=== PATIENT | female | born 1935 | race Caucasian/White ===

== ENCOUNTER 2017-08-10 00:56 | Inpatient (IN) | payer OTHER ==
[~2017-08-10] VITALS: Ht 152.4 cm; Wt 60.8 kg
[~2017-08-10 00:56] MED LIST: AMLODIPINE BESYL5 M1 PO; ASPIRIN EC81 M1 PO; CALCIUM 600-VI1 EAC1 PO; LOSARTAN-HCTZ1 EAC2 PO; PRAVACHOL40 M1 PO; TYLENOL EXTRA500 M2 PO; VITAMIN B-121000 MC3 PO; VITAMIN C1000 M4 PO; VITAMIN D31000 UNI1 PO
--- NOTE | 2017-08-10 13:21 | RADIOLOGY REPORT ---
EXAMINATION: XR HIP, RIGHT CLINICAL INFORMATION: Status post right total hip replacement COMPARISON: None TECHNIQUE: Two views of the right hip. FINDINGS: The components of the total hip arthroplasty are in their expected positions. The femoral head prosthesis is well-positioned within the acetabular cup which has an estimated lateral version of approximately 43 degrees and anteversion of approximately 20 degrees. No acute periprosthetic fracture. Postoperative soft tissue gas around the hip. IMPRESSION: The components of the right total hip arthroplasty exhibit satisfactory position and alignment.
[2017-08-10 13:30] VITALS: BP 126/78
--- NOTE | 2017-08-10 13:50 | Admission Core Measures ---
Acute Coronary Syndrome (CM) ACS Core Measures Acute Coronary Syndrome Diagnosis No Congestive Heart Failure (NEW) CHF Core Measures Congestive Heart Failure Diagnosis No Cerebrovascular Accident (NEW) CVA Core Measures CVA/TIA Diagnosis No Venous Thromboembolism VTE Core Nicole (View Protocol) VTE Risk Factors Surgery No Mechanical VTE Prophylaxis d/t N/A MechProphylax Ordered No VTE Pharm Prophylaxis d/t NA PharmProphylax ordered Problem List As ranked by this Provider includes Assessment & Plan 1. Unilateral primary osteoarthritis, right hip HOME MEDS Home Med List Acetaminophen (Tylenol Extra Strength) 500 MG TABLET 2 TAB PO PRN PAIN ( Reported) Amlodipine Besylate 5 MG TABLET 1 TAB PO DAILY BP (Reported) Ascorbic Acid (Vitamin C) (Unknown Strength) TABLET (Unknown Dose) PO DAILY SUPPLEMENT (Reported) Aspirin (Ecotrin*) 81 MG TABLET.DR 1 TAB PO DAILY HEART/BLOOD (Reported) Calcium Carbonate/Vitamin D3 (Calcium 600-Vit D3 2,500 Sftgl) (Unknown Strength) CAPSULE (Unknown Dose) PO DAILY SUPPLEMENT (Reported) Cholecalciferol (Vitamin D3) (Vitamin D3) 1,000 UNIT CAPSULE 1 CAP PO DAILY SUPPLEMENT (Reported) Cyanocobalamin (Vitamin B-12) 1,000 MCG TABLET 1 TAB PO DAILY SUPPLEMENT ( Reported) Losartan/Hydrochlorothiazide (Losartan-Hctz 100-25 MG Tab) 100 MG-25 MG TABLET 1 TAB PO DAILY BP (Reported) Pravastatin Sodium (Pravachol) 40 MG TABLET 1 TAB PO DAILY CHOLESTEROL ( Reported)
[2017-08-10] MEDS ORDERED: ASPIRIN EC81 M1 PO (13:52)
[2017-08-10] MEDS ORDERED: PERCOCET 5-3251 EACH PO (13:52)
[2017-08-10] MEDS ORDERED: COLACE100 M1 PO (13:52)
[2017-08-10] MEDS ORDERED: MIRALAX17 G1 PO (13:52)
[2017-08-10] MEDS ORDERED: PRILOSEC OTC20 M1 PO (13:52)
--- NOTE | 2017-08-10 13:56 | Patient Discharge Instructions ---
Discharge Instructions General Discharge Information You were seen/treated for: Right hip pain related to unilateral primary osteoarthritis You had these procedures: Right total hip replacement Watch for these problems: Increasing pain despite the use of pain medication Increasing redness, warmth or swelling Drainage of any type from incision Inability to bear weight on operative leg Persistent nausea and vomiting Fever greater than 101.5 degrees Do not soak the wound: Yes No bath, but you may shower: Yes Other wound care: Please keep wound clean and dry. No ointments or lotions of any type on or near incision at any time. No exceptions. Your dressing will be changed by your nurse on the second day after your surgery. Daily dry dressing changes are recommended each day thereafter. Do not soak your wound in a bath at any time until otherwise indicated by your surgeon. You may shower, please dry wound immediately after shower with a clean towel. Special Instructions: Aspirin: You are now taking this medication to help prevent blood clot formation. You will be taking 81 mg twice a day for the next three weeks. Please take with food to protect your stomach lining. Please take as directed. LOSARTAN: You have been taking a combination of losartan and hydrochlorothiazide. I spoke with Imani, a PA in Dr. Caldwell's office regarding your recent lab work. She has recommended that you discontinue this combination pill and start taking only Losartan. She has called in an rx to your pharmacy. Please call Dr. Caldwell's office when you get home and schedule a follow up appointment with her. She would like you to be seen one week from discharge, on Tuesday08/19/2017. Constipation: Pain medication can cause constipation. Dr. Robles has recommended that you take Colace and miralax each day. You may discontinue this medication if you develop loose stool or diarrhea. If you wish to continue this medication, it is available over the counter. If you are unable to move your bowels after several days, if you are unable to pass gas and are developing bloating, nausea, or vomiting as a result, please contact your doctor. Diet Continue normal diet: Yes Recommended Diet: Heart Healthy Activity Full Activity/No Limits: No Activity Self Limited: Yes Pounds, do NOT lift more than: 10 Acute Coronary Syndrome Inclusion Criteria At [place] or during hospital stay patient has or had the following: ACS DIAGNOSIS No Discharge Core Measures Meds if any: Prescribed or Continued at Discharge Meds if any: NOT Prescribed or Continued at Discharge Congestive Heart Failure Inclusion Criteria At DC or during hospital stay patient has or had the following: CHF DIAGNOSIS No Discharge Core Measures Meds if any: Prescribed or Continued at Discharge Meds if any: NOT Prescribed or Continued at Discharge Cerebrovascular accident Inclusion Criteria At DC or during hospital stay patient has or had the following: CVA/TIA Diagnosis No Discharge Core Measures Meds if any: Prescribed or Continued at Discharge Meds if any: NOT Prescribed or Continued at Discharge Venous thromboembolism Inclusion Criteria VTE Diagnosis No VTE Type NONE VTE Confirmed by (Test) NONE Discharge Core Measures - Per Current guidelines, there needs to be overlap - treatment for the first 5 days of Warfarin therapy. - If discharged on Warfarin prior to 5 days of - overlap therapy, the patient will need to be - assessed for post discharge needs including - *Post discharge parental anticoagulation - *Warfarin and/or parental anticoagulation education - *Follow up date to check INR post discharge At least 5 days overlap therapy as Inpatient No Meds if any: Prescribed or Continued at Discharge Note: Overlap Therapy is Warfarin and Anticoagulant Meds if any: NOT Prescribed or Continued at Discharge
--- NOTE | 2017-08-10 13:58 | Surgical Discharge Summary ---
Visit Information Visit Dates Admission Date: 08/10/17 Discharge Date: 08/12/17 History of Present Illness Chief Complaint: Right hip pain related to unilateral primary osteoarthritis Medical History Isolation History: Standard Surgical History Pertinent Surgical History: non-contributory Review of Systems: See H&P Hospital Course Course Attending Physician: Kalyan Robles MD Primary Care Physician: Magda Caldwell MD Hospital Course: Patient was admitted to the hospital for an elective total joint replacement. The procedure was tolerated well and patient was transferred to a general surgical floor. Diet was advanced and tolerated. The patient was evaluated and treated by physical therapy. At the time of hospital discharge, the vital signs were stable, neurovascular status was intact, and pain was controlled with the use of oral pain medications. Allergies: Coded Allergies: amoxicillin (RASH ALL OVER BODY 08/09/17) hydromorphone (From DILAUDID) (NAUSEA AND DIZZY 08/09/17) Significant Procedures: R THR on 08/10/17 Disposition Summary Disposition Principal Diagnosis: Right hip unilateral primary osteoarthritis Additional Diagnosis: None Discharge Disposition: home health services Discharge Instructions General Discharge Information Code Status: Full Code Patient's Diet: Heart healthy, advance as tolerated Patient's Activity: WBAT Follow-Up Instructions/Appts: Follow up with Dr. Robles in 6 weeks from date of surgery. Please call office to arrange &/or confirm this appointment. Medications at Discharge Discharge Medications: Stop taking the following medications: Losartan/Hydrochlorothiazide (Losartan-Hctz 100-25 MG Tab) 100 MG-25 MG TABLET ORAL DAILY Aspirin (Ecotrin*) 81 MG TABLET. ORAL DAILY Acetaminophen (Tylenol Extra Strength) 500 MG TABLET ORAL as needed for PAIN Continue taking these medications: Pravastatin Sodium (Pravachol) 40 MG TABLET 1 Tablet ORAL DAILY Comments: Last Taken: 08/12/17 Time: 9AM Amlodipine Besylate (Amlodipine Besylate) 5 MG TABLET 1 Tablet ORAL DAILY Comments: Last Taken: 08/12/17 Time: 9AM Cyanocobalamin (Vitamin B-12) 1,000 MCG TABLET 1 Tablet ORAL DAILY Comments: DID NOT ADMINISTER IN HOSPITAL Cholecalciferol (Vitamin D3) (Vitamin D3) 1,000 UNIT CAPSULE 1 Capsule ORAL DAILY Comments: DID NOT ADMINISTER IN HOSPITAL Calcium Carbonate/Vitamin D3 (Calcium 600-Vit D3 2,500 Sftgl) (Unknown Strength) CAPSULE Unknown Dose ORAL DAILY Comments: DID NOT ADMINISTER IN HOSPITAL Ascorbic Acid (Vitamin C) (Unknown Strength) TABLET Unknown Dose ORAL DAILY Comments: DID NOT ADMINISTER Start taking the following new medications: Oxycodone HCl/Acetaminophen (Percocet 5-325 MG Tablet) 5 MG-325 MG TABLET 1-2 Tablet ORAL EVERY 4-6 HOURS as needed for PAIN Qty = 36 No Refills Comments: NOT GIVEN IN HOSPITAL- ROXICODONE ADMINISTERED Last Taken: 08/12/17 Time: 9AM Aspirin (Ecotrin*) 81 MG TABLET.DR 1 Tablet ORAL TWICE DAILY Qty = 60 No Refills Comments: Last Taken: 08/12/17 Time: 9AM Polyethylene Glycol 3350 (Miralax) 17 GRAM POWD.PACK 1 Packet ORAL DAILY Qty = 7 No Refills Instructions: dissolve in water, DISCONTINUE USE IF YOU DEVELOP LOOSE STOOL OR DIARRHEA Comments: Last Taken: 08/12/17 Time: 9AM Docusate Sodium (Colace) 100 MG CAPSULE 1 Capsule ORAL TWICE DAILY Qty = 14 No Refills Instructions: DISCONTINUE USE IF YOU DEVELOP LOOSE STOOL OR DIARRHEA Comments: Last Taken: 08/12/17 Time: 9AM Omeprazole Magnesium (Prilosec Otc) 20 MG TABLET.DR 1 Tablet ORAL DAILY Qty = 30 No Refills Comments: Last Taken: 08/12/17 Time: 6AM Losartan (Cozaar) 100 MG TABLET 1 Tablet ORAL DAILY Qty = 30 No Refills Comments: Last Taken: 08/12/17 Time: 9AM
--- NOTE | 2017-08-10 14:42 | Operative Report ---
Operative/Inv Procedure Report Surgery Date: 08/10/17 Name of Procedure: Right total hip replacement Pre-Operative Diagnosis: Primary right hip DJD Post-Operative Diagnosis: Same Estimated Blood Loss: 250 Surgeon/Batter Depositor: Margaret JAMISON,Kalyan Rosa Anesthesia: general endotracheal tube Operative/Procedure Note Note: Description of Procedure: The patient was taken to the operating room and positively identified. After induction of general anesthesia and administration of appropriate pre-operative antibiotics, the patient was positioned supine on the operating room table and all bony prominences were well padded. After performing a surgical timeout, the right lower extremity was prepped and draped in the usual sterile fashion. A direct anterior approach was made to the right hip. The incision was carried sharply through superficial soft tissues to the level of the fascia. Meticulous hemostasis was maintained with Bovie electocautery. The fascia over the tensor fascia filippo muscle was opened sharply and the interval between the TFL and the sartorius was entered bluntly taking care to stay lateral to the lateral femoral cutaneous nerve. Retractors were placed around the femoral neck and the pericapsular fat was identified. The ascending branches of the lateral femoral circumflex vessels were identified and carefully coagulated. The pericapsular fat and anterior capsule were then resected. A napkin ring osteotomy was performed and the femoral head was removed without difficulty. Attention was then turned to the acetabulum. After appropriate placement of retractors, the acetabulum was exposed. Soft tissue was cleaned from the acetabular margin and notch. Overhanging osteophytes were removed and the teardrop was exposed. The acetabulum was then sequentially reamed to accept a 58 mm Jacqueline Tritanium hemispherical solid shell. This was impacted into place in the appropriate position and fitted with a 36 mm Trident X3 zero degree polyethylene insert. Attention was then turned to the femur. After performing the appropriate ligament releases, the proximal femur was exposed. It was then sequentially broached to accept a size 5 [place] Accolade 2 stem. This was trialed for leg length and stability. The trial component was removed and the final component was impacted into place. The trunnion was carefully cleaned and fit with a 36 mm, -2.5 Biolox delta ceramic femoral head. The hip was reduced and put through a full range of motion and found to be stable. The articular space was then irrigated with sterile saline. The periarticular soft tissues were infilitrated with Marcaine. The fascial layer was closed with interrupted #1 vicryl suture and the skin was re-approximated with interrupted 2 -0 vicryl. The skin was closed with a running 3-0 V-Lock suture. Steri-strips and a sterile dressing were applied. The patient was awakened and taken to the recovery room in satisfactory condition.
--- NOTE | 2017-08-10 16:52 | PN- Orthopedic ---
Subjective Subjective: poc s/p right dara no major complaints has ambulated with pt sitting up in chair eating hs had some mild nausea with diet Objective Vital Signs and I&Os Vital Signs Date Time Temp Pulse Resp B/P B/P Pulse O2 O2 Flow FiO2 Mean Ox Delivery Rate 08/10 1441 97 Nasal 2.0L Cannula 08/10 1330 95.7 66 16 126/78 97 Nasal 2.0L Cannula Intake & Output 08/10 1600 08/10 0800 08/10 0000 08/09 1600 08/09 0800 08/09 0000 Intake Total Output Total Balance Patient 134 lb 134 lb Weight Weight Reported by Patient Measurement Method Physical Exam: cv: rrr lungs; clear abd: soft, +bs ext: rigth thigh soft distal cms intact drsg dry Assessment/Plan Assessment/Plan ortho stable plan oob with ptin am asa fro dvt prophylaxis home dc planning Core Measures Venous Thromboembolism VTE Risk Factors Surgery No Mechanical VTE Prophylaxis d/t N/A MechProphylax Ordered No VTE Pharm Prophylaxis d/t NA PharmProphylax ordered
[2017-08-10 17:30] VITALS: BP 120/60
[2017-08-10 21:30] VITALS: BP 92/60
[2017-08-11 01:55] VITALS: BP 108/60
[2017-08-11 06:04] VITALS: BP 126/68
--- NOTE | 2017-08-11 07:23 | PN- Orthopedic ---
Subjective Subjective: Mild pain in the right hip. No other complaints. She is voiding well and has been up and ambulatory a few times to the bathroom. Objective Vital Signs and I&Os Vital Signs Date Time Temp Pulse Resp B/P B/P Pulse O2 O2 Flow FiO2 Mean Ox Delivery Rate 08/11 0604 98.3 90 20 126/68 93 Room Air 08/11 0155 98.1 74 18 108/60 93 Room Air 08/10 2130 98.1 74 20 92/60 94 Room Air 08/10 1730 97.7 72 20 120/60 96 Nasal Cannula 08/10 1441 97 Nasal 2.0L Cannula 08/10 1330 95.7 66 16 126/78 97 Nasal 2.0L Cannula Intake & Output 08/11 0800 08/11 0000 08/10 1600 08/10 0800 08/10 0000 08/09 1600 Intake Total 840 Output Total Balance 840 Intake, IV 600 Intake, Oral 240 Patient 134 lb 134 lb Weight Weight Reported by Patient Measurement Method Physical Exam: Well-developed well-nourished no apparent distress. HEENT: Atraumatic, extraocular motion intact Neck: Supple, no lymphadenopathy Respiratory: No respiratory distress Extremities: No edema RIGHT lower extremity hip dressing in place, Dressing clean dry and intact No signs of infection. Moderate hematoma noted right proximal thigh underneath mid distal aspect of incision No shortening or rotation Hip range of motion is limited and without unexpected pain Neurovascularly intact distally Bilateral calves are supple, nontender. Neuro: Alert and oriented x3 Psych: Mood affect normal, normal memory normal judgment. Skin: Warm and dry, no rash on exposed skin Assessment/Plan Assessment/Plan Postop day #1 status post right total hip arthroplasty anterior approach Perioperative antibiotics. Pain medication as needed. Out of bed Physical therapy, weightbearing as tolerated DC IV fluids Regular diet Follow a.m. labs Aspirin for DVT prophylaxis ALPS for DVT prophylaxis Regular home meds Dressing change postop day 2 Disposition: To home with [facility] services today versus tomorrow Core Measures Venous Thromboembolism VTE Risk Factors Surgery No Mechanical VTE Prophylaxis d/t N/A MechProphylax Ordered No VTE Pharm Prophylaxis d/t NA PharmProphylax ordered
[2017-08-11 09:20] LABS: ABSOLUTE BASOPHIL COUNT 0 /CUMM (0.0-0.2); ABSOLUTE EOSINOPHIL COUNT 0 /CUMM (0.0-0.7); ABSOLUTE GRANULOCYTE CT 5.5 /CUMM (1.4-6.5); ABSOLUTE LYMPH COUNT 1.1 /CUMM (1.2-3.4); ABSOLUTE MONOCYTE COUNT 0.5 /CUMM (0.10-0.60); BASOPHIL % 0.2 % (0.0-2.0); EOSINOPHIL % 0.2 % (0-5); GRANULOCYTE % 77.5 % (42.2-75.2); HEMATOCRIT 25.6 % (37-47); MEAN CORPUSCULAR HGB 30.3 PG (27.0-31.0); MEAN CORPUSCULAR HGB CONC 34.8 G/DL (33.0-37.0); MEAN PLATELET VOLUME 9.7 FL (7.4-10.4); PLATELET COUNT 172 /CUMM (130-400); RBC DISTRIBUTION WIDTH 14.3 % (11.5-14.5); RED BLOOD CELL CT 2.94 /CUMM (4.20-5.40); WHITE BLOOD CELL COUNT 7.1 /CUMM (4.8-10.8)
[2017-08-11 10:26] VITALS: BP 122/60
[2017-08-11 14:31] VITALS: BP 118/70
[2017-08-11 22:30] VITALS: BP 110/66
[2017-08-12 01:59] VITALS: BP 106/68
[2017-08-12 05:36] VITALS: BP 136/52
--- NOTE | 2017-08-12 08:06 | PN- Orthopedic ---
See Addendum Subjective Subjective: Patient reports pain is well controlled. Reports soreness, reports sleeping on her right hip last night. Ambulating with PT. Eager to go home today. Offers no other complaints Objective Vital Signs and I&Os Vital Signs Date Time Temp Pulse Resp B/P B/P Pulse O2 O2 Flow FiO2 Mean Ox Delivery Rate 08/12 0536 99.0 94 18 136/52 94 Room Air 08/12 0159 97.9 83 18 106/68 95 Room Air 08/11 2237 98.2 08/11 2230 100.5 100 18 110/66 92 Room Air 08/11 1431 97.7 76 18 118/70 93 Room Air 08/11 1026 96.6 86 18 122/60 94 Room Air 08/11 0900 90 126/70 08/11 0900 90 126/70 Intake & Output 08/12 1600 08/12 0800 08/12 0000 08/11 1600 08/11 0800 08/11 0000 Intake Total 100 700 510 700 840 Output Total Balance 100 700 510 700 840 Intake, IV 150 600 600 Intake, Oral 100 700 360 100 240 Number 0 Bowel Movements Physical Exam: Gen - resting comfortably nad Cardiac - s1s2, rrr Lungs - ctab Abd - soft, nontender nondistended Ext - R hip dressing c/d/i, moderate surrounding swelling, no hematoma noted, dressing changed, motor and sensory intact, no edema or calf tenderness Current Medications: Current Medications Sig/Medardo Start time Last Medication Dose Route Stop Time Status Admin Acetaminophen 1,000 MG Q6 08/10 1800 DC 08/11 IV 08/11 1201 1213 Amlodipine Besylate 5 MG DAILY 08/11 899 AC 08/11 PO 0900 Aspirin Buffered 81 MG BID 08/10 2100 AC 08/11 PO 2002 Docusate Sodium 100 MG BID 08/10 2100 AC 08/11 PO 2002 Hydrochlorothiazide 25 MG DAILY 08/11 899 AC 08/11 PO 0900 Losartan Potassium 100 MG DAILY 08/11 09 AC 08/11 PO 0900 Morphine Sulfate 2 MG Q2P PRN 08/10 1400 AC IV Omeprazole 40 MG DAILY AC 08/11 0700 AC 08/12 PO 0550 Ondansetron HCl 4 MG Q6P PRN 08/10 1400 AC IV Oxycodone HCl 5 MG Q4P PRN 08/10 1400 AC PO Oxycodone HCl 10 MG Q4P PRN 08/10 1400 AC 08/12 PO 0509 Patient Medication 1 ED ONE ONE 08/11 1545 DC 08/11 Teaching ED 08/11 1546 1604 Polyethylene Glycol 17 GM DAILY 08/11 0900 AC 08/11 PO 0900 Pravastatin Sodium 40 MG DAILY 08/11 0900 AC 08/11 PO 0900 Promethazine HCl 12.5 MG Q6P PRN 08/10 1400 AC 08/10 IV 08/17 1244 1607 Results Last 48 Hours of Labs: Laboratory Tests 08/11 0635 Chemistry Sodium (137 - 145 mmol/L) 128 L Potassium (3.5 - 5.1 mmol/L) 3.6 Chloride (98 - 107 mmol/L) 95 L Carbon Dioxide (22 - 30 mmol/L) 27 Anion Gap (5 - 16) 6 BUN (7 - 17 mg/dL) 9 Creatinine (0.5 - 1.0 mg/dL) 0.5 Estimated GFR (>60 ml/min) > 60 BUN/Creatinine Ratio (7 - 25 %) 18.0 Hematology CBC w Diff NO MAN DIFF REQ WBC (4.8 - 10.8 /CUMM) 7.1 RBC (4.20 - 5.40 /CUMM) 2.94 L Hgb (12.0 - 16.0 G/DL) 8.9 L Hct (37 - 47 %) 25.6 L MCV (81.0 - 99.0 FL) 87.0 MCH (27.0 - 31.0 PG) 30.3 MCHC (33.0 - 37.0 G/DL) 34.8 RDW (11.5 - 14.5 %) 14.3 Plt Count (130 - 400 /CUMM) 172 MPV (7.4 - 10.4 FL) 9.7 Gran % (42.2 - 75.2 %) 77.5 H Lymphocytes % (20.5 - 51.1 %) 15.2 L Monocytes % (1.7 - 9.3 %) 6.9 Eosinophils % (0 - 5 %) 0.2 Basophils % (0.0 - 2.0 %) 0.2 Absolute Granulocytes (1.4 - 6.5 /CUMM) 5.5 Absolute Lymphocytes (1.2 - 3.4 /CUMM) 1.1 L Absolute Monocytes (0.10 - 0.60 /CUMM) 0.5 Absolute Eosinophils (0.0 - 0.7 /CUMM) 0 Absolute Basophils (0.0 - 0.2 /CUMM) 0 Assessment/Plan Assessment/Plan 84 F POD 2 s/p R THR, recovering well, stable for discharge OOB PT, WBAT Reg diet Pain regimen prn Dry dressing changes daily DVT ppx - asa 81, alps Regular home meds Anticipate d/c today pending labs PT clearance Core Measures Venous Thromboembolism VTE Risk Factors Surgery No Mechanical VTE Prophylaxis d/t N/A MechProphylax Ordered No VTE Pharm Prophylaxis d/t NA PharmProphylax ordered
[2017-08-12 08:55] LABS: ABSOLUTE BASOPHIL COUNT 0 /CUMM (0.0-0.2); ABSOLUTE EOSINOPHIL COUNT 0 /CUMM (0.0-0.7); ABSOLUTE GRANULOCYTE CT 5.4 /CUMM (1.4-6.5); ABSOLUTE MONOCYTE COUNT 0.6 /CUMM (0.10-0.60); BASOPHIL % 0.5 % (0.0-2.0); EOSINOPHIL % 0.4 % (0-5); GRANULOCYTE % 76.4 % (42.2-75.2); MEAN CORPUSCULAR HGB 30.4 PG (27.0-31.0); MEAN CORPUSCULAR HGB CONC 34.2 G/DL (33.0-37.0); MEAN CORPUSCULAR VOLUME 88.8 FL (81.0-99.0); MEAN PLATELET VOLUME 9.4 FL (7.4-10.4); PLATELET COUNT 173 /CUMM (130-400); RED BLOOD CELL CT 3.04 /CUMM (4.20-5.40); WHITE BLOOD CELL COUNT 7.1 /CUMM (4.8-10.8)
[2017-08-12 10:00] VITALS: BP 100/58
[2017-08-12] MEDS ORDERED: COZAAR100 M1 PO (10:17)
== END 2017-08-12 11:34 | disposition home health service (06) | DRG 470 ==
LOC: SDA 00:56 → ENRESERV 12:52 → ENTRNSPT 13:56 → EDTRNSPT 14:06 → EDTRNSPTSTS 14:06 → 2NA 14:13 → CMPTRNSPT 14:28 → ENPENDDIS 08-12 08:10 → 2NA 08-12 11:34
PROVIDERS: Nurse Practitioner; Physician Assistant Surgical
PROC: 0SR904A Replacement of Right Hip Joint with Ceramic on Polyethylene Synthetic Substitute, Uncemented, Open Approach (ICD-10-PCS; principal; 2017-08-10)
DX: M16.11 Unilateral primary osteoarthritis, right hip (principal); I35.8 Other nonrheumatic aortic valve disorders; I34.0 Nonrheumatic mitral (valve) insufficiency; E78.00 Pure hypercholesterolemia, unspecified; K57.90 Diverticulosis of intestine, part unspecified, without perforation or abscess without bleeding; E78.5 Hyperlipidemia, unspecified; R01.1 Cardiac murmur, unspecified; R35.0 Frequency of micturition
CPT/HCPCS: 2NASP; 36592; 73502-RT; 82436; 97110-GO; 97116-GO; 97161-GP; 97530-GO; C9399; J0131; J0690; J0735; J2405; J2550; J3490; J7042